=== PATIENT | female | born 1980 | race Caucasian/White ===

== ENCOUNTER 2021-10-09 14:41 | Emergency (ER) | payer OTHER ==
[2021-10-09] MEDS ORDERED: AUGMENTIN 500-1 EACH PO (15:06)
== END 2021-10-09 15:18 | disposition home or self-care (01) ==
LOC: FER 14:41
DX: S51.852A Open bite of left forearm, initial encounter (principal); L08.9 Local infection of the skin and subcutaneous tissue, unspecified; Z23 Encounter for immunization; Z28.310 Unvaccinated for COVID-19; W55.01XA Bitten by cat, initial encounter; Y92.009 Unspecified place in unspecified non-institutional (private) residence as the place of occurrence of the external cause
CPT/HCPCS: 90471; 90715

== ENCOUNTER 2021-10-10 09:26 | Emergency (ER) | payer OTHER ==
[~2021-10-10 09:26] MED LIST: AUGMENTIN 500-1 EACH PO
== END 2021-10-10 10:40 | disposition home or self-care (01) ==
LOC: FER 09:26
DX: S51.832A Puncture wound without foreign body of left forearm, initial encounter (principal); W55.01XA Bitten by cat, initial encounter; Y92.009 Unspecified place in unspecified non-institutional (private) residence as the place of occurrence of the external cause; Z28.310 Unvaccinated for COVID-19
CPT/HCPCS: 90375; 90675; 96372